=== PATIENT | male | born 1975 | race African-American/Black ===

== ENCOUNTER 2024-09-24 13:19 | Emergency (ER) | payer BC ==
[~2024-09-24] VITALS: Ht 177.8 cm; Wt 85.0 kg
[2024-09-24 13:32] VITALS: O2SAT 100
[2024-09-24 13:35] VITALS: BP 121/79; PULSE 75; RESP 18; TEMP 98.5; O2SAT 98
[2024-09-24] MEDS: ACETAMINOPHEN 325MG TABLET PO ONE (14:26)
== END 2024-09-24 17:15 | disposition home or self-care (01) ==
LOC: ER 13:19
DX: S09.90XA Unspecified injury of head, initial encounter (principal); M54.2 Cervicalgia; M79.642 Pain in left hand; G35 Multiple sclerosis; Z91.030 Bee allergy status; Z96.649 Presence of unspecified artificial hip joint; Z99.3 Dependence on wheelchair; X58.XXXA Exposure to other specified factors, initial encounter; Y93.89 Activity, other specified; Y92.89 Other specified places as the place of occurrence of the external cause; Y99.8 Other external cause status
CPT/HCPCS: 73110; 99284